=== PATIENT | female | born 1995 | race Caucasian/White ===

== ENCOUNTER 2019-04-04 14:04 | Outpatient (REF) | payer SELFPAY ==
--- NOTE | 2019-04-04 13:30 | PAPFT_PTH ---
PATIENT: ROSEANN RÍOS LOC: [facility] U#:[id number] AGE/SX: 23/F ROOM: RE04/04/[address]: Karime Berumen : 1995 BED: DIS: 04/04/2019 SPEC #: [id number] RECD: 04/05/19 13:13 STATUS: RIA REJet #: [id number] RACHANA: 04/04/19 13:[address]: Karime Moore DEPT: [facility] Cytology RECD BY: Faiza Deutsch Tissues: 1 - CX/ENDOCX FOR PAP SMEARS Procedures: PAP THIN PREP/[facility] Screening HPV DNA PROBE Comments: [id number] (CHLAMYDIA/GC)
[2019-04-08 14:23] LABS: Chlamydia Result Negative (Negative); GC Result Negative (Negative)
== END 2019-04-04 14:24 ==
LOC: NCHCN 14:04
PROVIDERS: PCP Nurse Practitioner Family; Visit Provider Nurse Practitioner Family
DX: Z11.3 Encounter for screening for infections with a predominantly sexual mode of transmission (principal); Z12.4 Encounter for screening for malignant neoplasm of cervix
CPT/HCPCS: 87491; 87591; 88142; 87624